=== PATIENT | female | born 1960 | race Caucasian/White ===

== ENCOUNTER 2022-11-09 06:38 | Day surgery (SDC) | payer BC ==
[2022-11-09] MEDS ORDERED: Versed 2 MG/2 ML Injection ONE (06:55)
[2022-11-09] MEDS ORDERED: DIPRIVAN 200 MG/20 ML IV ONE ×2 (06:56→08:23)
[2022-11-09] MEDS ORDERED: Lactated Ringers 1,000 ML IV SCH (07:00)
[2022-11-09 08:57] VITALS: O2SAT 100
[2022-11-09 09:18] VITALS: BP 117/81; PULSE 69
--- NOTE | 2022-11-09 10:41 | OP ---
SURGERY DATE/TIME: 11/09/2022 0800 PREOPERATIVE DIAGNOSIS: Screening colonoscopy. POSTOPERATIVE DIAGNOSES: 1) Distal sigmoid colon polyp x1. 2) Diverticulosis. PROCEDURE: Colonoscopy. SURGEON: Carlos A Gaona M.D. ANESTHESIA: MAC by Manoj Crawley CRNA. ESTIMATED BLOOD LOSS: Minimal. SPECIMENS: Hot forceps polypectomy from the distal sigmoid colon. DESCRIPTION OF PROCEDURE: After informed written consent was obtained, the patient was taken to the endoscopy suite. She was placed in left lateral decubitus position and anesthesia was titrated to desired level of consciousness. Digital rectal exam showed normal sphincter tone and no internal lesions. The scope was inserted into the rectum and sequentially the entire colonic mucosa was traversed. The level of cecum was reached and verified with direct visualization of the ileocecal valve. Upon withdrawal there were scattered diffuse diverticula noted, prep was noted to be fair. In the distal sigmoid colon between the second and third valve of [place], there was a small sessile flat polyp which was grasped forceps, cauterized and removed in its entirety. It was actually removed in two separate pieces with forceps. There was good hemostasis and the entire lesion was removed following inspection. No other lesions were encountered. Prior to withdrawal retroflexion was performed and showed no internal lesions. The scope was removed. The patient was transferred to the recovery room in good condition. She was advised to follow up in a week for pathology.
== END 2022-11-09 09:15 | disposition home or self-care (01) ==
LOC: SDC 06:38
PROVIDERS: ATTEND Family Medicine
DX: Z12.11 Encounter for screening for malignant neoplasm of colon (principal); K63.5 Polyp of colon; K57.30 Diverticulosis of large intestine without perforation or abscess without bleeding
CPT/HCPCS: J2250; J2704

== ENCOUNTER 2023-01-21 11:41 | Emergency (ER) | payer BC ==
--- NOTE | 2023-01-21 11:48 | ERPHSYRPT ---
- History of Present Illness Time Seen by Provider: 01/21/23 11:48 Source: patient, EMS Exam Limitations: no limitations Physician History: This is a 62-year-old white female patient was brought in by the paramedics/ambulance service because of severe lower back and left hip pain. She states she has been having intermittent lower back pain and worsening left hip pain in the last month or longer. She has not had an isolated episode of fall that she can recall. Today, she was doing some hanging/stretching exercises. After her exercises she noticed the pain was getting worse in the lumbar spine and left hip area. She called the ambulance service because she could not even bend forward or down. The ambulance service arrived and provided the patient with a Toradol injection at 10:30 in the morning per their report. It took them a while to place her in the ambulance because of significant pain. When she is up and ambulating her pain level is 10 out of 10. When she is lying still and not moving it is 1 out of 10. Patient's primary care provider is nurs mitchel Taveras. She has no loss of bowel function. She does not have urinary incontinence. She does not have numbness or loss of sensation in her lower extremities or feet. Timing/Duration: week(s) (At least 4 weeks per patient report), intermittent, worse Back Pain Location: lumbar spine, paraspinous muscles Severity of Pain-Max: moderate Modifying Factors: Improves With: movement Associated Symptoms: lower back pain (Worsens), other (Left hip pain) Previous symptoms: no recent treatment Allergies/Adverse Reactions: No Known Drug Allergies Allergy (Verified 11/09/22 06:50) Home Medications: Levothyroxine Sodium [Synthroid] 1 tab PO DAILY 09/25/22 [History] Non-Formulary Drug [Non-Formulary Item] See Rx Instructions .ROUTE .COMPLEX 11/09/22 [History] Travel Risk - International Travel Have you traveled outside of the country in past 3 weeks: No - Coronavirus Screening Are you exhibiting any of the following symptoms?: No Close contact with a COVID-19 positive Pt in past 14-21 Days: No - Review of Systems Constitutional: No Symptoms Eyes: No Symptoms Ears, Nose, & Throat: No Symptoms Respiratory: No Symptoms Cardiac: No Symptoms Abdominal/Gastrointestinal: No Symptoms Genitourinary Symptoms: No Symptoms - Past Medical History Pertinent Past Medical History: Yes Neurological History: No Pertinent History ENT History: No Pertinent History Cardiac History: No Pertinent History Respiratory History: No Pertinent History Endocrine Medical History: Thyroid Cancer Musculoskeletal History: No Pertinent History GI Medical History: No Pertinent History History: No Pertinent History Psycho-Social History: No Pertinent History Female Reproductive Disorders: No Pertinent History Other Medical History: radiation for thyroid ca. - Past Surgical History Past Surgical History: Yes Neuro Surgical History: No Pertinent History Cardiac: No Pertinent History Respiratory: No Pertinent History Gastrointestinal: No Pertinent History Genitourinary: No Pertinent History Musculoskeletal: No Pertinent History Female Surgical History: No Pertinent History Other Surgical History: thyroidectomy - Social History Smoking Status: Former smoker Exposure to second hand smoke: No Drug Use: none - Nursing Vital Signs Nursing Vital Signs: Initial Vital Signs Temperature 97.8 F 01/21/23 11:43 Pulse Rate 66 01/21/23 11:43 Respiratory Rate 18 01/21/23 11:43 Blood Pressure 147/74 01/21/23 11:43 O2 Sat by Pulse Oximetry 96 01/21/23 11:43 Pain Scale Pain Intensity 4 - Physical Exam General Appearance: mild distress (To moderate), anxiety Eye Exam: PERRL/EOMI, eyes nml inspection Ears, Nose, Throat Exam: normal ENT inspection, moist mucous membranes Neck Exam: normal inspection, non-tender, supple, full range of motion Respiratory Exam: normal breath sounds, lungs clear, airway intact, No chest tenderness, No respiratory distress Gastrointestinal Exam: No tenderness Pelvic Exam: not done Back Exam: normal inspection, vertebral tenderness (Lumbar level), decreased range of motion, muscle spasm Extremity Exam: normal inspection, normal range of motion, pelvis stable Neurologic Exam: alert, oriented x 3, cooperative, senior applications architect II-XII nml as tested, normal mood/affect, sensation nml Skin Exam: normal color, warm, dry Lymphatic Exam: No adenopathy SpO2 Interpretation: normal O2 Delivery: Room Air - Course Nursing assessment & vital signs reviewed: Yes Ordered Tests: Active Orders 24 hr Category Date Time Status LOWER EXTREMITY WO CONTRAST [CT] Routine Exams 01/21/23 13:05 Completed LUMBAR SPINE W/O [CT] Stat Exams 01/21/23 13:02 Completed Medication Summary Discontinued Medications Generic Name Dose Route Start Last Admin Trade Name Freq PRN Reason Stop Dose Admin Methylprednisolone Sodium 0 mg 01/21/23 12:23 01/21/23 12:44 Succinate 125 mg/ Sterile IM 01/21/23 12:24 125 mg Water 2 ml STAT ONE Administration Hydromorphone HCl 1 mg 01/21/23 12:22 01/21/23 12:50 Hydromorphone 1 Mg/1ml Inj IM 01/21/23 12:23 1 mg STAT ONE Administration Hydromorphone HCl Confirm 01/21/23 12:38 Hydromorphone 1 Mg/1ml Inj Administered 01/21/23 12:39 Dose 1 mg .ROUTE .STK-MED ONE Methylprednisolone Sodium Succinate Confirm 01/21/23 12:38 Methylprednis Sod Succ 125 Mg/2 Ml Vial Administered 01/21/23 12:39 Dose 125 mg .ROUTE .STK-MED ONE Ondansetron HCl 4 mg 01/21/23 12:22 01/21/23 12:50 Zofran 4 Mg/Udtablet Orally Disintegrating PO 01/21/23 12:23 4 mg STAT ONE Administration Ondansetron HCl Confirm 01/21/23 12:38 Zofran 4 Mg/Udtablet Orally Disintegrating Administered 01/21/23 12:39 Dose 4 mg .ROUTE .STK-MED ONE Orphenadrine Citrate 60 mg 01/21/23 12:23 01/21/23 12:55 Orphenadrine Citrate 60 Mg/2 Ml Vial IM 01/21/23 12:24 Not Given STAT ONE Orphenadrine Citrate Confirm 01/21/23 12:37 Orphenadrine Citrate 100 Mg Er Tab Administered 01/21/23 12:38 Dose 100 mg PO .STK-MED ONE Orphenadrine Citrate 100 mg 01/21/23 12:40 01/21/23 12:50 Orphenadrine Citrate 100 Mg Er Tab PO 01/21/23 12:41 100 mg STAT ONE Administration Sterile Water Confirm 01/21/23 12:37 Water For Injection,Sterile 10 Ml Vial Administered 01/21/23 12:38 Dose 10 ml IJ .STK-MED ONE - Progress Progress: improved, pain not gone completely, re-examined Progress Note: 01/21/23 14:34 This patient's medical issue is 1 of moderate complexity. The level complexity and the work-up performed is based on review of the patient's past medical history, review of the patient's medication list, review the patient's drug allergy list, history of present illness and physical findings on examination. The work-up in this patient includes a CT scan of the left hip and a CT scan of the lumbar spine. Both are without contrast. We provided the patient with Dilaudid intramuscularly, oral Zofran, intramuscular Solu-Medrol and oral Norflex. Patient's pain is significantly improved. I am waiting for the results of the CAT scan report. Once I reviewed the report of the CAT scans, my plan is to discharge the patient home with medication to help with her pain and she is to follow-up with her primary care physician for further evaluation management. 01/21/23 14:[address] scan of the left hip report by the radiologist as well as a CT scan of the lumbar spine read by the radiologist. The CT scan of the lumbar spine without contrast shows destructive lytic lesion involving L2 vertebral body with a pathologic fracture. There is retropulsion of its posterior aspect indenting the underlying thecal sac. In addition there is a left kidney focal contour bulge with small parenchymal calcification or stone present. The CAT scan of the left hip without contrast shows a small lytic lesion of the left acetabulum and iliac bones. Consider the possibility of bone metastasis. There is no evidence of any acute fracture or dislocation. Counseled pt/family regarding: diagnosis, need for follow-up, rad results Medical Desision Making - Diagnostic Testing Diagnostic test were ordered, analyzed, and reviewed by me: Yes Radiological Interpretation: Reviewed by me, Teleradiologist Report - Risk of complications The pt has a mod risk of morbidity or mortality based on: Need for prescription drug management - Departure Departure Disposition: Home Clinical Impression: Back pain, Left hip pain, Pathological fracture of lumbosacral spine, Lytic bone lesion of hip Condition: Stable Critical Care Time: No Referrals: BON TAVERAS NP [Primary Care Provider] - Follow up/PCP as directed Additional Instructions: Take medication as prescribed. Call your primary care provider tomorrow, 01/22/2023 for further evaluation management. Prescriptions: Oxycodone HCl/Acetaminophen [Percocet 5-325 mg Tablet] 1 each PO Q8H PRN PRN #6 tablet MDD 3 PRN Reason: Moderate To Severe Pain Prednisone 10 mg [Deltasone 10 mg] 10 mg PO TID #12 tablet Orphenadrine Citrate 100 mg [Norflex 100 MG Tablet] 100 mg PO BID #10 tab
[2023-01-21] MEDS ORDERED: Hydromorphone 1 mg/ml Injection IM ONE (12:22)
[2023-01-21] MEDS ORDERED: ZOFRAN ODT 4 MG PO ONE (12:22)
[2023-01-21] MEDS ORDERED: solu-MEDROL 125 MG, Sterile H2O 10 ml 2 ML IM ONE ×2 (12:23)
[2023-01-21] MEDS ORDERED: Norflex 60 MG/2 ML IM ONE (12:23)
[2023-01-21] MEDS ORDERED: Sterile H2O 10 ml IJ ONE (12:37)
[2023-01-21] MEDS ORDERED: Norflex 100 MG Tablet PO ONE ×2 (12:37→12:40)
[2023-01-21] MEDS ORDERED: ZOFRAN ODT 4 MG ONE (12:38)
[2023-01-21] MEDS ORDERED: Hydromorphone 1 mg/ml Injection ONE (12:38)
[2023-01-21] MEDS ORDERED: solu-MEDROL ONE (12:38)
--- NOTE | 2023-01-21 14:35 | XRAY ---
CLINICAL HISTORY:Severe lumbar spine pain. COMPARISON:None. TECHNIQUES:Axial CT cuts were taken through the lumbar spine with multiplanar reformatting and without contrast administration. FINDINGS: Destructive lytic lesion involving L2 vertebral body with reduced height, wedging, and pathological fracture of the involved vertebra and suspected extra osseous prevertebral component. Retropuleion of its posterior aspect measuring about 6 mm indenting the underlying thecal sac. Lumbar spine scoliosis is convex to the right side. Lumbar spondylotic changes with marginal osteophytes and narrowed L5/S1 disc space. L5-S1 posterior and right posterolateral disc protrusion (5 mm) with posterior traction osteophyte indenting the underlying thecal sac and markedly encroaching upon corresponding right neural foramen and exiting nerve root. L4-L5 mild posterior disc bulge (2 mm) is seen flattening the theca sac and mildly encroaching upon corresponding neural exit foramina bilaterally. L3-L4 mild posterior disc bulge (2 mm) is seen flattening the theca sac and mildly encroaching upon corresponding neural exit foramina bilaterally. Bilateral L3-L4, L4-L5 and L5-LS1 facet arthropathy. The sacroiliac joints are intact. Small sclerotic areas at the left iliac bone, likely bone islands. The left kidney shows a focal contour bulge with small parenchymal calcification or stone. IMPRESSION: 1. Destructive lytic lesion involving L2 vertebral body with reduced height, wedging, and pathological fracture of the involved vertebra as well as retropulsion of its posterior aspect indenting the underlying thecal sac, findings are concerning for neoplastic or metastatic process, clinical correlation and MRI assessment is recommended. 2. Lumbar spondylotic changes with disc lesions as described. 3. The left kidney shows a focal contour bulge with small parenchymal calcification or stone, U/S assessment is recommended. The [facility] office was called at [phone] at 01:26 PM VIDEO GAME ENGINEER, 01/21/2023 and the results are verbally communicated with Herb Lopez. Electronically Signed by: Renzo Brock MD. (01/21/2023 13:32:57 VIDEO GAME ENGINEER)
--- NOTE | 2023-01-21 14:49 | XRAY ---
CLINICAL HISTORY:Left hip pain-low back pain. COMPARISON:None. TECHNIQUES:Axial CT cuts were taken through the bilateral hip joints with multiplanar reformatting and without contrast administration. FINDINGS: Small lytic lesions are seen at the left acetabulum and iliac bones. Small sclerotic areas at the posterior aspect of the left iliac bone, likely small bone islands. No evidence of osseous fractures. Intact hip joints with no evidence of subluxation or dislocation. Normal CT appearance of the femoral head with normal spherical contour. No evidence of intracapsular or roderick-articular fluid collections. Normal CT appearance of the surrounding muscle groups and intermuscular fat planes. Please refer to the lumbar spine report done on the same day. IMPRESSION: 1. Small lytic lesions are seen at the left acetabulum and iliac bones, the possibility of bone metastasis should be considered, and bone scan correlation is recommended. 2. No evidence of osseous fractures. 3. Please refer to the lumbar spine report done on the same day. The [facility] office was called at [phone] at 01:39 PM PIPE FINISHING SUPERVISOR, 01/21/2023 and the results are verbally communicated with Herb Lopez. Electronically Signed by: Renzo Brock MD. (01/21/2023 13:42:52 PIPE FINISHING SUPERVISOR)
[2023-01-21 15:11] VITALS: BP 138/74; PULSE 58; O2SAT 96
== END 2023-01-21 15:55 | disposition home or self-care (01) ==
LOC: ED 11:41
DX: M84.48XA Pathological fracture, other site, initial encounter for fracture (principal); M89.9 Disorder of bone, unspecified; M54.50 Low back pain, unspecified; M25.552 Pain in left hip; Z79.899 Other long term (current) drug therapy
CPT/HCPCS: 72131; 73700; 96372; 99284; J1170; J2930; Q0162; A9270-GY